=== PATIENT | female | born 1955 | race African-American/Black ===

== ENCOUNTER 2020-04-18 16:21 | Emergency (ER) | payer OTHER ==
[~2020-04-18] VITALS: Ht 162.6 cm; Wt 81.6 kg
[2020-04-18 16:48] VITALS: BP 106/76
[2020-04-18 18:29] LABS: Urine Bacteria MANY /hpf (None Seen); Urine Blood TRACE /uL (Negative); Urine WBC 12 /hpf (0 - 5)
[2020-04-18 18:34] LABS: Urine Specific Gravity 1.022 (1.001-1.035)
== END 2020-04-18 20:00 | disposition left against medical advice (07) ==
LOC: ER 16:21
DX: M54.5 Low back pain (principal); Z53.21 Procedure and treatment not carried out due to patient leaving prior to being seen by health care provider
CPT/HCPCS: 81001